=== PATIENT | male | born 1965 | race Caucasian/White ===

== ENCOUNTER 2024-03-01 13:16 | Emergency (ER) | payer OTHER ==
[2024-03-01 13:42] VITALS: BP 159/85; PULSE 67; RESP 20; TEMP 98.6; BMI 33.5
[2024-03-01] MEDS: LACTATED RINGERS SOLUTION 1000 ML INFUS.BAG IV ONE (15:00)
[2024-03-01 15:39] LABS: HEMOGLOBIN 15.9 G/dL (11.7-16.9); MCH 32.2 pg (25.7-33.7); MCHC 32.4 g/dl (32.0-35.9); MEAN CELL VOLUME 99.2 fl (80-96); MEAN PLT VOLUME 9.8 fl (7.5-11.1); PLATELET COUNT 214.7 10^3/uL (134-434); RBC 4.94 10^6/uL (4.00-5.60); WHITE BLOOD COUNT 8.1 10^3/uL (4.0-10.8)
[2024-03-01 15:51] LABS: PLATELET ESTIMATE ADEQUATE
[2024-03-01 15:55] LABS: BILIRUBIN,TOTAL 0.5 mg/dl (0.2-1); CALCIUM 10.4 mg/dl (8.5-10.1); CREATININE 1.1 mg/dl (0.6-1.3); POTASSIUM 4.2 mmol/L (3.5-5.1); TOT PROT 7.5 g/dl (6.4-8.2)
== END 2024-03-01 18:20 | disposition home or self-care (01) ==
LOC: FER 13:16
DX: R20.0 Anesthesia of skin (principal)
CPT/HCPCS: 36415; 70450-TC; 80053; 84484; 85027; 93970-TC; 99284-25